=== PATIENT | female | born 1940 | race Caucasian/White ===

== ENCOUNTER 2017-06-08 17:29 | Emergency (ER) ==
[2017-06-08 17:38] VITALS: BP 153/80; TEMP 98; BMI 16.9
--- NOTE | 2017-06-08 18:15 | ED.PDOC ---
General ED Provider: Dr. ALANNA WESTON Chief Complaint: Eye Problem Stated Complaint: red eye left Time Seen by Physician: 17:30 Mode of Arrival: Stretcher Information Source: Patient, Assisted, EMT Exam Limitations: No limitations Primary Care Provider: SURESH KELLOGG Nursing and Triage Documentation Reviewed and Agree: Yes EENT Complaint Exam - Eye Complaint/Exam Symptoms Are: Still present Timing: Constant Initial Severity: Mild Current Severity: Mild Location: Left Character: Reports: Dull Aggravating: Reports: None Alleviating: Reports: None Associated Signs and Symptoms: Denies: Photophobia, Clear drainage, Purulent drainage, Vision impairment, Fever, Swelling Eye Surgical History: Reports: None Penetrating Injury Risk Factors: None Globe Rupture Risk Factors: None Acute Glaucoma Risk Factors: None Optic Artery Occlusion Risk Factors: None Orbit Findings: Normal Globe Findings: Intact Lid Findings: Normal Conjunctival Findings: Red (subcounjunctival hemrooaghe left) Corneal Findings: Clear Differential Diagnoses: Other (see above) Review of Systems - Review Of Systems Constitutional: Reports: No symptoms Eyes: Reports: Inflammation (left ) Ears, Nose, Mouth, Throat: Reports: No symptoms Respiratory: Reports: No symptoms Cardiac: Reports: No symptoms GI: Reports: No symptoms : Reports: No symptoms Musculoskeletal: Reports: No symptoms Skin: Reports: No symptoms Neurological: Reports: No symptoms Endocrine: Reports: No symptoms Hematologic/Lymphatic: Reports: No symptoms All Other Systems: Reviewed and Negative Past Medical History - Past Medical History Previously Healthy: Yes Endocrine: Reports: None Cardiovascular: Reports: Hypertension Respiratory: Reports: None Hematological: Reports: None Gastrointestinal: Reports: None Genitourinary: Reports: None Neuro/Psych: Reports: None Musculoskeletal: Reports: None Cancer: Reports: None Last Menstrual Period: menopause - Surgical History General Surgical History: Reports: None - Family History Family History: Reports: None - Social History Smoking Status: Former smoker Hx Substance Use: No Alcohol Screening: None Physical Exam - Physical Exam Appearance: Well-appearing, No pain distress, Well-nourished Eyes: Conjunctiva inflammed (subconjunctival hemorraghe left) ENT: Ears normal, Nose normal, Oropharynx normal Respiratory: Airway patent, Breath sounds clear, Breath sounds equal, Respirations nonlabored Cardiovascular: RRR, Pulses normal, No rub, No murmur GI/: Soft, Nontender, No masses, Bowel sounds normal, No Organomegaly Musculoskeletal: Normal strength, ROM intact, No edema, No calf tenderness Skin: Warm, Dry, Normal color Neurological: Sensation intact, Motor intact, Reflexes intact, Cranial nerves intact, Alert, Oriented Psychiatric: Affect appropriate, Mood appropriate Critical Care Note - Critical Care Note Total Time (mins): 0 Course - Course Orders, Labs, Meds: Orders Category Date Time Status CT IAC/ORBIT/P.FOSSA W/O CONTR Stat RADS 06/08/17 18:12 Ordered Vital Signs: Temp Pulse Resp BP Pulse Ox 06/08/17 17:30 98 F 51 L 16 153/80 H 100 Departure - Departure Time of Disposition: 18:15 Disposition: HOME SELF-CARE Discharge Problem: Subconjunctival bleed Qualifiers: Laterality: left Qualified Code(s): H11.32 - Conjunctival hemorrhage, left eye Instructions: Subconjunctival Hemorrhage (ED) Condition: Good Pt referred to PMD for follow-up: Yes Additional Instructions: Please call your Family Physician as soon as possible to schedule a follow-up appointment. Home Medications: Ambulatory Orders Acetaminophen 2 tab PO BID 06/08/17 Acetaminophen 500 mg PO Q4H PRN 06/08/17 Albuterol Sulfate [Proair Hfa] 2 puff IH Q6H PRN 06/08/17 Amlodipine Besylate 5 mg PO DAILY 06/08/17 Aspirin 81 mg PO DAILY 06/08/17 Atenolol 50 mg PO DAILY 06/08/17 Clonidine HCl 0.1 mg PO Q4H PRN 06/08/17 Clotrimazole/Betamethasone Dip [Lotrisone Cream] 15 gm TP Q12H PRN 06/08/17 Furosemide [Lasix] 40 mg PO DAILY 06/08/17 Guaifenesin [Mucinex] 600 mg PO Q12H PRN 06/08/17 Ipratropium/Albuterol Neb [Duoneb] 1 vial NEB RTQ6H PRN 06/08/17 Lisinopril 10 mg PO DAILY 06/08/17 Omeprazole 20 mg PO DAILY 06/08/17 Paroxetine HCl [Paxil] 20 mg PO DAILY 06/08/17 Polyethylene Glycol 3350 [Miralax] 17 gm PO EVERY OTHER DAY 06/08/17 Tiotropium [place] [Spiriva] 18 mcg IH DAILY 06/08/17 Trazodone HCl 50 mg PO BEDTIME 06/08/17
--- NOTE | 2017-06-08 18:57 | CT ---
EXAM: CT of the orbits without contrast History: Left eye redness. Technique: Multiplanar CT images through the orbits were obtained without the administration of IV c ontrast Findings: Bilateral orbits are intact. No periorbital or orbital cellulitis. The visualized intrac ranial contents demonstrate no acute findings. Atherosclerotic vascular calcifications. No acute fr acture or dislocation. Degenerative changes of the bilateral temporomandibular joints. There is emanuel e debris seen within the right sphenoid sinus. No air-fluid levels seen within the sinuses. Mastoid air cells are clear. Nasal septum is bowed to the left. Bilateral ostiomeatal units are not occlud ed. Impression: 1. Intact orbits. 2. Right sphenoid sinus disease.
== END 2017-06-08 19:50 | disposition home or self-care (01) ==
LOC: ED 17:29
DX: H11.32 Conjunctival hemorrhage, left eye (principal); F03.90 Unspecified dementia, unspecified severity, without behavioral disturbance, psychotic disturbance, mood disturbance, and anxiety
CPT/HCPCS: 99282

== ENCOUNTER 2017-10-14 08:19 | Emergency (ER) ==
[2017-10-14 08:32] VITALS: BP 146/64; TEMP 98.1; BMI 17.2
[2017-10-14] MEDS ORDERED: MUCOMYST 20% NEB NEB STA (08:48)
[2017-10-14] MEDS ORDERED: SOLU-MEDROL 125 MG IVP STA (08:49)
[2017-10-14] MEDS ORDERED: ALBUTEROL 0.083% NEB NEB ONE (09:03)
[2017-10-14] MEDS ORDERED: SOLU-MEDROL 125 MG ONE (09:11)
[2017-10-14] MEDS ORDERED: ALBUTEROL 0.083% NEB NEB STA (09:22)
--- NOTE | 2017-10-14 12:02 | DI ---
EXAM: Single view of the chest HISTORY: Cough and shortness of breath. COMPARISON: None FINDINGS: Cardiomediastinal silhouette is unremarkable with atherosclerotic disease. There is no pne umothorax. There is mild hyperinflation with minimal blunting the costophrenic angles. There is no acute consolidation identified. The osseous structures are unremarkable. IMPRESSION: 1. No acute consolidation. 2. Mild hyperinflation with blunting the costophrenic angles may represent fibrosis versus atelectas is. Findings are suggestive of chronic obstructive pulmonary disease.
[2017-10-14] MEDS ORDERED: DUONEB NEB ONE (12:15)
--- NOTE | 2017-10-14 13:08 | ED.PDOC ---
General ED Provider: Dr. SALENA VAIL MD Chief Complaint: Respiratory Complaint Stated Complaint: i'm coughing Time Seen by Physician: 08:35 (denies fever, chest pain) Mode of Arrival: Ambulance Information Source: Patient, Detention, EMT Exam Limitations: No limitations Seen Within Last 72 Hours for Same Complaint By: ED (CT chest neg 2 days ago) Nursing and Triage Documentation Reviewed and Agree: Yes Reviewed sepsis parameters & appropriate labs ordered?: Yes System Inflammatory Response Syndrome: Temp 96.8F or Lower Sepsis Protocol: For patient's 13 years and over: Temp is 96.8 and below OR 101 and greater Pulse >90 BPM Resp >20/minute Acutely Altered Mental Status Are patient's symptoms suggestive of a new infection, such as: -Pneumonia -Skin, Soft Tissue -Endocarditis -UTI -Bone, Joint Infection -Implantable Device -Acute Abdominal Infection -Wound Infection -Meningitis -Blood Stream Catheter Infection -Unknown Respiratory Complaint Exam - Shortness of Air Complaint/Exam Onset/Duration: few days of dry cough congestion Symptoms Are: Still present Timing: Constant Initial Severity: Mild Current Severity: Mild Character: Reports: Dyspnea at rest (mild labored breathing) Aggravating: Reports: None Alleviating: Reports: Bronchodilators Associated Signs and Symptoms: Reports: Cough, Nasal congestion, Labored breathing History of Healthcare-Acquired Pneumonia: No Pulmonary Embolism Risk Factors: Reports: None Review of Systems - Review Of Systems Constitutional: Reports: Other (on oxygen at [facility], H/O COPD 2L min nasal canula) Eyes: Reports: No symptoms Ears, Nose, Mouth, Throat: Reports: No symptoms Respiratory: Reports: Cough, Short of air Cardiac: Reports: No symptoms GI: Reports: No symptoms : Reports: No symptoms Musculoskeletal: Reports: No symptoms Skin: Reports: No symptoms Neurological: Reports: No symptoms Endocrine: Reports: No symptoms Hematologic/Lymphatic: Reports: No symptoms All Other Systems: Reviewed and Negative Past Medical History - Past Medical History Previously Healthy: Yes Endocrine: Reports: None Cardiovascular: Reports: Hypertension Respiratory: Reports: None Hematological: Reports: None Gastrointestinal: Reports: None Genitourinary: Reports: None Neuro/Psych: Reports: None Musculoskeletal: Reports: None Cancer: Reports: None Last Menstrual Period: menopause - Surgical History General Surgical History: Reports: None - Family History Family History: Reports: None - Social History Smoking Status: Former smoker Hx Substance Use: No Alcohol Screening: None Physical Exam - Physical Exam Appearance: No pain distress, Thin Ill-appearing: Mild Pain Distress: None Eyes: JIL, EOMI, Conjunctiva clear ENT: Rhinorrhea (mild) Neck: Supple Respiratory: Breath sounds clear, Breath sounds equal Cardiovascular: RRR (pulse of 74), Pulses normal, No rub, No murmur GI/: Soft, Nontender, No masses, Bowel sounds normal, No Organomegaly Musculoskeletal: Normal strength, ROM intact, No edema, No calf tenderness Skin: Warm, Dry, Normal color Neurological: Sensation intact, Motor intact, Reflexes intact, Cranial nerves intact, Alert, Oriented Psychiatric: Affect appropriate, Mood appropriate Interpretation - Radiology Interpretation Radiology Results: No acute changes Exam Interpreted: CXR, Portable CXR Radiology Interpretation By: ED Physician (no acute changes, pulse ox now 98%) - Circus Rider Rate: Normal Rhythm: Sinus Ectopy: None Re-Evaluation - Re-Evaluation Time of Re-Evaluation: 10:00 Status: Improved Vital Signs Stable: Yes (pulse ox 98%) Appearance: NAD Lungs: Clear Skin: Warm and Dry Neuro: Alert and Oriented X3 CV: RRR - Re-Evaluation Time of Re-Evaluation: 11:30 Status: Improved Vital Signs Stable: Yes (pulse ox improved) Appearance: NAD Skin: Warm and Dry Neuro: Alert and Oriented X3 CV: RRR Critical Care Note - Critical Care Note Total Time (mins): 0 Course - Course Orders, Labs, Meds: Orders Category Date Time Status NEBULIZER TREATMENT Stat CARDIO 10/14/17 08:48 Ordered NEBULIZER TREATMENT Stat CARDIO 10/14/17 09:22 Ordered CBC W/ AUTO DIFF Stat LAB 10/14/17 08:47 Ordered FLU A & B MOLECULAR [FLU A/B MOLECULAR] Stat LAB 10/14/17 08:55 Ordered Acetylcysteine Neb [Mucomyst 20% Neb] MEDS 10/14/17 08:48 Stat 1 ml NEB ONCE STA Albuterol Sulfate 0.083% Neb [Albuterol 0.083% Neb] MEDS 10/14/17 09:22 Stat 1 vial NEB ONCE STA Methylprednisolone Sod Succ/Pf [Solu-Medrol 125 mg] MEDS 10/14/17 08:49 Stat 125 mg IVP ONCE STA CXR [CHEST, 1V AP ONLY] Stat RADS 10/14/17 08:46 Ordered Vital Signs: Temp Pulse Resp BP Pulse Ox 10/14/17 08:19 98.1 F 71 28 H 146/64 H 95 Departure - Departure Time of Disposition: 11:45 Disposition: HOME SELF-CARE Discharge Problem: Shortness of breath Condition: Good Pt referred to PMD for follow-up: Yes IPMP verified?: No Allergies/Adverse Reactions: Allergies codeine Adverse Reaction (Verified 10/14/17 08:34) meperidine [From Demerol] Adverse Reaction (Verified 10/14/17 08:34) tramadol Adverse Reaction (Verified 10/14/17 08:34) Home Medications: Ambulatory Orders Acetaminophen 2 tab PO BID 06/08/17 Acetaminophen 500 mg PO Q4H PRN 06/08/17 Albuterol Sulfate [Proair Hfa] 2 puff IH Q6H PRN 06/08/17 Amlodipine Besylate 5 mg PO DAILY 06/08/17 Aspirin 81 mg PO DAILY 06/08/17 Atenolol 50 mg PO DAILY 06/08/17 Clonidine HCl 0.1 mg PO Q4H PRN 06/08/17 Clotrimazole/Betamethasone Dip [Lotrisone Cream] 15 gm TP Q12H PRN 06/08/17 Furosemide [Lasix] 40 mg PO DAILY 06/08/17 Guaifenesin [Mucinex] 600 mg PO Q12H PRN 06/08/17 Ipratropium/Albuterol Neb [Duoneb] 1 vial NEB RTQ6H PRN 06/08/17 Lisinopril 10 mg PO DAILY 06/08/17 Omeprazole 20 mg PO DAILY 06/08/17 Paroxetine HCl [Paxil] 20 mg PO DAILY 06/08/17 Polyethylene Glycol 3350 [Miralax] 17 gm PO EVERY OTHER DAY 06/08/17 Tiotropium [place] [Spiriva] 18 mcg IH DAILY 06/08/17 Trazodone HCl 50 mg PO BEDTIME 06/08/17 Magnesium Hydroxide [Milk of Magnesia] 30 ml PO DAILY PRN 10/14/17 Nystatin [Nystop Powder] 1 applic TP Q8HR PRN 10/14/17
== END 2017-10-14 13:25 | disposition home or self-care (01) ==
LOC: ED 08:19
DX: R06.02 Shortness of breath (principal); R05 Cough; I10 Essential (primary) hypertension; J44.9 Chronic obstructive pulmonary disease, unspecified; Z99.81 Dependence on supplemental oxygen; Z79.899 Other long term (current) drug therapy; G30.9 Alzheimer's disease, unspecified; F02.80 Dementia in other diseases classified elsewhere, unspecified severity, without behavioral disturbance, psychotic disturbance, mood disturbance, and anxiety; R40.2411 Glasgow coma scale score 13-15, in the field [EMT or ambulance]; R09.89 Other specified symptoms and signs involving the circulatory and respiratory systems
CPT/HCPCS: 36415; 85025; 87502; 94640; 96374; 99283